=== PATIENT | female | born 1970 | race African-American/Black ===

== ENCOUNTER 2019-02-13 10:15 | Emergency (ER) | payer OTHER ==
[2019-02-13 11:06] LABS: ALT (SGPT) 8 U/L (8-55); AST (SGOT) 13 U/L (5-34); Albumin 3.5 g/dL (3.5-5.0); Alkaline Phosphatase 87 U/L (40-150); Anion Gap 12 mmol/L (10-20); BUN (Urea Nitrogen) 17 mg/dL (7.0-18.7); Bilirubin, Total 0.3 mg/dL (0.2-1.2); Calc. Creatinine Clearance 0 mL/min (70-130); Carbon Dioxide 28 mmol/L (22-29); Chloride 107 mmol/L (98-107); Estimated GFR-MDRD Greater than 90; Globulin 3.8 g/dL (2.4-3.5); Glucose 122 mg/dL (70-105); Potassium 3.3 mmol/L (3.5-5.1); Protein, Total 7.3 g/dL (6.0-8.3); Sodium 144 mmol/L (136-145)
[2019-02-13 11:11] LABS: #Basophils 0.1 thou/uL (0.0-0.2); #Eosinphils 0.1 thou/uL (0.0-0.7); #Lymphocytes 1.4 thou/uL (1.20-3.40); #Monocytes 0.4 thou/uL (0.11-0.59); #Neutrophils 2.5 thou/uL (1.40-6.50); %Basophils 1.5 % (0.0-1.0); %Eosinophils 2.5 % (0.0-10.0); %Lymphocytes 30.9 % (21.0-51.0); %Monocytes 9.2 % (0.0-10.0); %Neutrophils 55.9 % (42.0-75.0); Anisocytosis SLIGHT = 6-15 cells (100X) (0-5/hpf); Elliptocytes SLIGHT = 2-5 cells (100X) (0-1/hpf); Hypochromia MODERATE=16-30 cells (100X) (0-5/hpf); MDiff Complete? YES; Mean Corpuscular HGB CONC 27.9 g/dL (32.0-36.0); Mean Corpuscular Hemoglobin 17.2 pg (27.0-31.0); Mean Corpuscular Volume 61.6 fL (78.0-98.0); Mean Platelet Volume 5.7 fL (7.4-10.4); Microcytosis MODERATE=15-30 cells (100X) (0-5/hpf); Platelet Count 348 thou/uL (130-400); Poikilocytosis SLIGHT = 6-15 cells (100X) (0-5/hpf); RBC Distribution Width 19.4 % (11.5-14.5); Red Blood Cell (RBC) Count 4.66 mill/uL (4.20-5.40); Rouleaux Formation SLIGHT = 1-5 cells (100X) (None Seen); Schistocytes SLIGHT = 2-5 cells (100X) (0-1/hpf); White Blood Cell (WBC) Count 4.5 thou/uL (4.8-10.8)
[2019-02-13] MEDS ORDERED: Ketorolac Tromethamine 30 MG/ML VIAL ONE (11:28)
[2019-02-13] MEDS ORDERED: methylPREDNISolone Sod Succ/PF 125 MG/2 ML VIAL ONE (11:28)
[2019-02-13] MEDS ORDERED: traMADol HCl 50 MG TAB ONE (11:28)
[2019-02-13] MEDS ORDERED: Albuterol Sulfate 1.25 MG/3 ML NEB ONE (11:29)
--- NOTE | 2019-02-13 17:44 | RAD ---
PORTABLE CHEST: 02/13/19 An AP portable film at 1032 is compared with a 10/24/06 study done at [facility]. In the interval, there has been marked increase in size in the cardiac silhouette. This could either be a large pericardial effusion or actual cardiomegaly due to entity such as a cardiomyopathy. Furthe r follow-up is obviously needed. There is a very slight amount of prominence of the upper lobe vessel s, but overall vascular congestion is minimal and there is certainly no edema or large pleural effusi on. The lungs are clear. IMPRESSION: Interval dramatic increase in size of the cardiac silhouette. Pericardial effusion versus cardiomyopa thy should be some of the early considerations. Further imaging, such as echocardiography, would be v viviane useful. Code T POS: HOME
== END 2019-02-13 12:08 | disposition home or self-care (01) ==
LOC: BURERS 10:15
DX: I51.7 Cardiomegaly (principal); J45.909 Unspecified asthma, uncomplicated; I10 Essential (primary) hypertension; D50.9 Iron deficiency anemia, unspecified; J06.9 Acute upper respiratory infection, unspecified; Z79.51 Long term (current) use of inhaled steroids; Z79.899 Other long term (current) drug therapy
CPT/HCPCS: 36415; 71045; 80053; 83880; 84484; 85025; 93005; 94640; 94760; 96374; 96375; J1885; J2930; J7620

== ENCOUNTER 2020-06-28 09:21 | Emergency (ER) | payer BC, OTHER, SELFPAY ==
[2020-06-28 09:44] LABS: Bilirubin Negative (Negative); Blood, Urine Trace (Negative); Clarity Clear (Clear); Glucose, Urine (Dipstick) Negative (Negative); Ketone, Urine 15 mg/dL (Negative); Leukocyte Negative (Negative); Nitrite Negative (Negative); Protein, Urine (Dipstick) Negative (Neg-Trace); Urobilinogen 0.2 mg/dL (Less than 2)
[2020-06-28] MEDS ORDERED: Ondansetron ODT 4 MG TAB ONE (09:48)
[2020-06-28] MEDS ORDERED: Hyoscyamine Sulfate SL 0.125 mg Tablet ONE (09:48)
[2020-06-28 09:57] LABS: Bacteria/HPF None Seen HPF (None Seen); RBC/HPF 0-3 HPF (0-3); Squamous Epithelial 0-3 HPF (0-3); WBC/HPF 0-3 HPF (0-3)
[2020-06-28 10:39] LABS: Anion Gap 14 mmol/L (10-20); BUN (Urea Nitrogen) 9 mg/dL (7.0-18.7); Calc. Creatinine Clearance 0 mL/min (70-130); Calcium 8.9 mg/dL (7.8-10.44); Carbon Dioxide 23 mmol/L (22-29); Chloride 105 mmol/L (98-107); Glucose 104 mg/dL (70-105); Potassium 3.4 mmol/L (3.5-5.1); Sodium 139 mmol/L (136-145)
[2020-06-28 10:51] LABS: Hemoglobin 9.5 g/dL (12.0-16.0); Mean Corpuscular HGB CONC 29.9 g/dL (32.0-36.0); Mean Corpuscular Hemoglobin 19.9 pg (27.0-31.0); Mean Corpuscular Volume 66.6 fL (78.0-98.0); Mean Platelet Volume 7.2 fL (7.4-10.4); Platelet Count 296 thou/uL (130-400); RBC Distribution Width 18.3 % (11.5-14.5); Red Blood Cell (RBC) Count 4.76 mill/uL (4.20-5.40); White Blood Cell (WBC) Count 4.1 thou/uL (4.8-10.8)
[2020-06-28 10:54] LABS: #Basophils 0.1 thou/uL (0.0-0.2); #Monocytes 0.4 thou/uL (0.11-0.59); #Neutrophils 2.7 thou/uL (1.40-6.50); %Basophils 1.9 % (0.0-1.0); %Lymphocytes 24.5 % (21.0-51.0); %Monocytes 9.2 % (0.0-10.0); %Neutrophils 64.4 % (42.0-75.0); Anisocytosis MODERATE=16-30 cells (100X) (0-5/hpf); Hypochromia MODERATE=16-30 cells (100X) (0-5/hpf); MDiff Complete? YES; Microcytosis SLIGHT = 6-15 cells (100X) (0-5/hpf); Ovalocytes SLIGHT = 2-5 cells (100X) (0-1/hpf); Platelet Morphology Comment Appears Adequate; Rouleaux Formation SLIGHT = 1-5 cells (100X) (None Seen)
--- NOTE | 2020-06-28 12:02 | CT ---
CT ABDOMEN AND PELVIS WITH CONTRAST: Date: 06/28/[address] of the abdomen and pelvis was done for evaluation of left lower quadrant pain. FINDINGS: The lung bases are clear. The heart is slightly generous in size for age. There might be a small amou nt of pericardial effusion, but this is not certain. The liver, spleen, pancreas, gallbladder, adrenal glands, and abdominal aorta showed no acute finding s. The kidneys show no sign of solid mass or hydronephrosis. No renal or ureteral calculi seen. There do es appear to be a subcentimeter cyst in the upper pole of the right kidney, and there is probably at 1.9 cm parapelvic cyst in the left kidney. Ultrasound would be needed to fully confirm that each of t hese were purely cystic. The bowel shows no distention, wall thickening, or inflammatory change around it. There was no eviden ce of diverticulitis, free air, or free fluid. A few loops of small bowel were fluid-filled, but were not dilated or thickened in any way. CT of the pelvis shows a moderate sized retroverted uterus with a small amount of fluid within it. No adnexal masses were appreciated. At most, there might be a dominant follicle, or sub-2 cm cyst in th e right ovary. No free fluid is seen in the cul-de-sac. No inflammatory changes in the region. IMPRESSION: No acute abdominal or pelvic findings to suggest diverticulitis. POS: HOME
[2020-06-28] MEDS ORDERED: Iopamidol 370 76% 100 ML VIAL ONE (14:47)
== END 2020-06-28 12:02 | disposition home or self-care (01) ==
LOC: BURERS 09:21
DX: R10.30 Lower abdominal pain, unspecified (principal); D50.9 Iron deficiency anemia, unspecified; R11.2 Nausea with vomiting, unspecified; J45.909 Unspecified asthma, uncomplicated; I11.0 Hypertensive heart disease with heart failure; I50.9 Heart failure, unspecified; Z79.899 Other long term (current) drug therapy
CPT/HCPCS: 74177; 80048; 81003; 81015; 85025; Q0162; Q9967